=== PATIENT | female | born 1955 ===

== ENCOUNTER 2021-06-29 18:05 | Emergency (ER) | payer MEDICARE ==
[2021-06-29] MEDS ORDERED: TETANUS,DIPH,PERTUSS(ACELL) VACCINE 0.5 ML SYRINGE IM ONE (18:17)
[2021-06-29] MEDS ORDERED: SODIUM CHLORIDE 0.9% IRR 500 ML BOTTLE IR ONE (18:17)
[2021-06-29] MEDS ORDERED: ACETAMINOPHEN 325 MG TAB PO ONE ×2 (18:17→19:07)
[2021-06-29] MEDS ORDERED: LIDOCAINE (1%) 10 MG/1 ML VIAL 20 ML MDV INFILTRATI ONE (18:17)
[2021-06-29] MEDS ORDERED: LIDOCAINE-MPF (1%) 10 MG/1 ML VIAL 5 ML INFILTRATI ONE (18:45)
--- NOTE | 2021-06-29 19:07 | Emergency Department Report ---
ED Laceration HPI - HPI Chief Complaint: Head Injury Stated Complaint: HEAD INJURY Time Seen by Provider: 06/29/21 18:17 Occurred When: Today Location: Head Severity: mild Tetanus Status: Not up to Date Laceration Symptoms: No Foreign Body Sensation, No Numbness, No Weakness, No Pain Other History: 66 yo was cleaning kitchen and slipped on wet floor. Hit her head on the bucket. Has lac to front right forehead. no loc. she denies other injury. is ambulatory in er. a/o. bleeding controlled. on no blood thinners. ED Review of Systems ROS: Stated complaint: HEAD INJURY Other details as noted in HPI Comment: All other systems reviewed and negative ED Past Medical Hx - Past Medical History Previous Medical History?: Yes Hx Hypertension: Yes - Surgical History Past Surgical History?: No - Family History Family history: no significant - Social History Smoking Status: Never Smoker Substance Use Type: None Laceration Physical Exam - Exam General: Vital signs noted. No distress. Alert and acting appropriately. Laceration Location: Head Laceration Exam: Yes Normal Distal CMS, No Foreign Body, No Exposed Tendon, Vessel, or Nerve, No Tendon Injury ED Course Vital Signs 06/29/21 18:17 Temperature 98.7 F Pulse Rate 72 Respiratory 16 Rate Blood Pressure 169/96 [Left] O2 Sat by Pulse 99 Oximetry - Laceration /Wound Repair head Wound Location: head Wound Length (cm): 4 Wound's Depth, Shape: superficial, irregular, flap, stellate, contused tissue Wound Explored: clean Irrigated w/ Saline (ccs): 100 Betadine Prep?: Yes Anesthesia: 1% Lidocaine Volume Anesthetic (ccs): 2 Wound Debrided: minimal Wound Repaired With: sutures Suture Size/Type: 6:0 Number of Sutures: 5 Layer Closure?: No Sterile Dressing Applied?: Yes Progress: tolerated well ED Medical Decision Making - Medical Decision Making Vital Signs 06/29/21 18:17 Temperature 98.7 F Pulse Rate 72 Respiratory 16 Rate Blood Pressure 169/96 [Left] O2 Sat by Pulse 99 Oximetry lac repair tdap given tylenol for pain dc home with dc plan of care including: monitoring overnight with neighbor/sleeping sitting up/ice pack/wound care and follow up. She verbalizes understanding Remains neuro intact on dc - Differential Diagnosis lac Critical care attestation.: If time is entered above; I have spent that time in minutes in the direct care of this critically ill patient, excluding procedure time. ED Disposition Clinical Impression: Laceration of head Qualifiers: Encounter type: initial encounter Location of open wound of head: scalp Foreign body presence: without foreign body Qualified Code(s): S01.01XA - Laceration without foreign body of scalp, initial encounter Fall Qualifiers: Encounter type: initial encounter Qualified Code(s): W19.XXXA - Unspecified fall, initial encounter Disposition: HOME / SELF CARE / HOMELESS Is pt being admited?: No Does the pt Need Aspirin: No Condition: Stable Instructions: Laceration Care, Adult Additional Instructions: keep wound clean and dry no ointments return in 7 days for removal of stitches keep ice on tonight sit in chair expect to be bruised into your face avoid aspirin/motrin products tonight use tylenol tonight sleep at neighbors for monitoring Referrals: ISABELLE SERRANO MD [Staff Physician] - 3-5 Days Time of Disposition: 19:10
[2021-06-29 19:34] VITALS: BP 165/86
== END 2021-06-29 19:27 | disposition home or self-care (01) ==
LOC: ED 18:05
DX: S01.91XA Laceration without foreign body of unspecified part of head, initial encounter (principal); I10 Essential (primary) hypertension; W19.XXXA Unspecified fall, initial encounter; Y93.E9 Activity, other interior property and clothing maintenance; Y92.090 Kitchen in other non-institutional residence as the place of occurrence of the external cause; Y99.8 Other external cause status
CPT/HCPCS: 12013; 90471; 90715; 99282; J3490

== ENCOUNTER 2021-07-06 08:32 | Emergency (ER) | payer MEDICARE ==
--- NOTE | 2021-07-06 09:23 | Emergency Department Report ---
Suture/Staple Removal - HPI Chief Complaint: Laceration/Recheck/Suture Stated Complaint: STITCHES REMOVED Time Seen by Provider: 07/06/21 09:21 When Sutures or Ledbetter Placed: 8-10 Days Ago ED Review of Systems ROS: Stated complaint: STITCHES REMOVED Other details as noted in HPI Comment: All other systems reviewed and negative ED Past Medical Hx - Past Medical History Hx Hypertension: Yes - Social History Smoking Status: Never Smoker Substance Use Type: None Suture Removal Exam - Exam General: Vital signs noted. No distress. Alert and acting appropriately. Wound: No Pathologic Erythema, No Tenderness, No Drainage, No Pus, No Wound Dehiscence Other Systems: All other systems reviewed and are unremarkable. ED Course Vital Signs 07/06/21 08:47 Temperature 98.4 F Pulse Rate 102 H Respiratory 18 Rate Blood Pressure 143/69 [Right] O2 Sat by Pulse 98 Oximetry ED Recheck MDM - Core Measures Measure Exclusions: not indicated - Differential Diagnosis Suture/Staple Removal Critical care attestation.: If time is entered above; I have spent that time in minutes in the direct care of this critically ill patient, excluding procedure time. ED Disposition Clinical Impression: Visit for suture removal Disposition: 01 HOME / SELF CARE / HOMELESS Is pt being admited?: No Does the pt Need Aspirin: No Condition: Stable Instructions: Wound Closure Removal, Care After Additional Instructions: Keep site clean and dry. Time of Disposition: 09:23
[2021-07-06 09:48] VITALS: BP 149/74
== END 2021-07-06 09:48 | disposition home or self-care (01) ==
LOC: ED 08:32
DX: T14.8XXD Other injury of unspecified body region, subsequent encounter (principal); X58.XXXD Exposure to other specified factors, subsequent encounter